=== PATIENT | female | born 1960 | race Caucasian/White ===

== ENCOUNTER 2017-06-18 09:47 | Emergency (ER) | payer MEDICARE, MEDICAID ==
[2017-06-18 10:13] VITALS: BP 138/80
--- NOTE | 2017-06-18 10:34 | UC ---
General HPI - HPI Summary HPI Summary: elevated BP x 2 days hx of HTN , has been getting high readings at home no chest pain , no palpitation , mild headaches, no sob - History of Current Complaint Chief Complaint: UCGeneralIllness Stated Complaint: ELEVATED B/P Time Seen by Provider: 06/18/17 10:16 Hx Obtained From: Patient Onset/Duration: Gradual Onset, Lasting Days - 2, Still Present Timing: Constant Onset Severity: Moderate Current Severity: Moderate Pain Intensity: 0 Associated Signs & Symptoms: Positive: Headache. Negative: Agitation, Abdominal Pain, Cough, Chest Pain, Dizziness, Diarrhea, Dysuria, Diaphoresis, Edema, Fever, Melena, Nausea, Palpitations, SOB, Vomiting, Wheezing, Weakness - Allergy/Home Medications Allergies/Adverse Reactions: Allergies Allergy/AdvReac Type Severity Reaction Status Date / Time hydrocodone Allergy Mild night Verified 06/18/17 10:01 tremors meperidine [From Demerol] Allergy Rash Verified 06/18/17 10:01 prochlorperazine Allergy Rash Verified 06/18/17 10:01 [From Compazine] Sulfa (Sulfonamide Allergy Rash Verified 06/18/17 10:01 Antibiotics) trimethobenzamide Allergy Rash Verified 06/18/17 10:01 [From Tigan] Home Medications: Home Medications Acetaminophen/Diphenhydramine [Tylenol Pm Ex-Strength Caplet] 2 each PO BEDTIME 06/18/17 [History Confirmed 06/18/17] Albuterol HFA INHALER* [Ventolin HFA Inhaler*] 2 puff INH Q6H PRN 06/18/17 [ History Confirmed 06/18/17] Calcitriol CAP* [Rocaltrol CAP*] 0.25 mcg PO BEDTIME 06/18/17 [History Confirmed 06/18/17] Cholecalciferol (Vitamin D3) [Vitamin D3] 1,000 unit PO BID 06/18/17 [History Confirmed 06/18/17] Citalopram TAB* [CeleXA TAB*] 40 mg PO DAILY 06/18/17 [History Confirmed ] Cyclobenzaprine TAB* [Flexeril 10 MG TAB*] 10 mg PO TID PRN 06/18/17 [History Confirmed 06/18/17] Denivir 1 udc TOPICAL SEE INSTRUCTIONS 06/18/17 [History Confirmed 06/18/17] Dexlansoprazole [Dexilant] 60 mg PO DAILY 06/18/17 [History Confirmed 06/18/17] Ferrous Sulfate TAB* 325 mg PO DAILY 06/18/17 [History Confirmed 06/18/17] Fluticasone NASAL SPRAY 50MCG* [Flonase NASAL SPRAY 50MCG*] 2 spray BOTH NARES BID 06/18/17 [History Confirmed 06/18/17] Fluticasone-Salmeterol 250-50* [Advair Diskus 250-50*] 1 puff INH BID 06/18/17 [ History Confirmed 06/18/17] Hydroxychloroquine TAB* [Plaquenil TAB*] 200 mg PO BID 06/18/17 [History Confirmed 06/18/17] Levothyroxine TAB* [Synthroid TAB*] 137 mcg PO DAILY 06/18/17 [History Confirmed 06/18/17] Metoprolol Succinate XL TAB* [Toprol XL TAB*] 50 mg PO DAILY 06/18/17 [History Confirmed 06/18/17] Multivitamin [Once Daily] 1 each PO DAILY 06/18/17 [History Confirmed 06/18/17] Polyethylene Glycol 3350* [Miralax*] 17 gm PO DAILY 06/18/17 [History Confirmed 06/18/17] SUMAtriptan TAB* [Imitrex TAB*] 100 mg PO SEE INSTRUCTIONS 06/18/17 [History Confirmed 06/18/17] Sucralfate SUSP (NF) [Carafate SUSP (NF)] 10 ml PO QID 06/18/17 [History Confirmed 06/18/17] Sucralfate TAB* [Carafate*] 1 gm PO TID 06/18/17 [History Confirmed 06/18/17] Valsartan TAB* [Diovan TAB*] 80 mg PO DAILY 06/18/17 [History Confirmed 06/18/17 ] busPIRone TAB* [Buspar TAB*] 1 tab PO BID 06/18/17 [History Confirmed 06/18/17] traMADol TAB* [Ultram*] 100 mg PO Q4H 06/18/17 [History Confirmed 06/18/17] PMH/Surg Hx/FS Hx/Imm Hx - Additional Past Medical History Additional PMH: GERD KIDNEY DISEASE OSTEO RA PLANTAR FACIITIS Endocrine History: Hypothyroidism Cardiovascular History: Hypertension GI/ History: Gastroesophageal Reflux - Surgical History Surgical History: Yes Surgery Procedure, Year, and Place: T&A. EAR TUBES. TOTAL THYROIDECTOMY. B/L TKA. RIGHT FOOT SX. LEFT ELBOW SX. HIATAL HERNIA REPAIR. RIGHT CARPAL TUNNEL. C-SECT. HYSTERECTOMY - Family History Known Family History: Positive: Cardiac Disease, Hypertension - Social History Alcohol Use: Rare Substance Use Type: None Smoking Status (MU): Never Smoked Tobacco Review of Systems Constitutional: Negative Skin: Negative Eyes: Negative ENT: Negative Respiratory: Negative Is Patient Immunocompromised?: No All Other Systems Reviewed And Are Negative: Yes Physical Exam Triage Information Reviewed: Yes Appearance: Well-Appearing, No Pain Distress, Obese Vital Signs: Initial Vital Signs Temp 97.8 F 06/18/17 10:05 Pulse 91 06/18/17 10:05 Resp 18 06/18/17 10:05 BP 138/80 06/18/17 10:05 Pulse Ox 98 06/18/17 10:05 Vital Signs Reviewed: Yes Eyes: Positive: Conjunctiva Clear ENT: Positive: Normal ENT inspection, Hearing grossly normal, Pharynx normal Neck: Positive: Supple, Nontender, No Lymphadenopathy Respiratory: Positive: Chest non-tender, Lungs clear, Normal breath sounds, No respiratory distress Cardiovascular: Positive: RRR, No Murmur, Pulses Normal Abdominal Exam: Normal Abdomen Description: Positive: Nontender, Soft Bowel Sounds: Positive: Present Musculoskeletal Exam: Normal Musculoskeletal: Positive: No Edema Neurological: Positive: Alert Skin Exam: Normal Course/Dx - Differential Dx - Multi-Symptom Provider Diagnoses: HTN Discharge - Sign-Out/Discharge Documenting (check all that apply): Discharge - Discharge Plan Condition: Stable Disposition: HOME Patient Education Materials: Hypertension (ED) Referrals: Nandini Black MD [Primary Care Provider] - 5 Days Additional Instructions: continue current meds monitor your BP daily and keep a log take your BP readings to your pcp in 5 to 7 days - Billing Disposition and Condition Condition: STABLE Disposition: HOME
== END 2017-06-18 10:42 | disposition home or self-care (01) ==
LOC: UCCORT 09:47
DX: I10 Essential (primary) hypertension (principal); Z88.5 Allergy status to narcotic agent; Z88.2 Allergy status to sulfonamides; Z88.8 Allergy status to other drugs, medicaments and biological substances; E03.9 Hypothyroidism, unspecified; N28.9 Disorder of kidney and ureter, unspecified; K21.9 Gastro-esophageal reflux disease without esophagitis; M72.2 Plantar fascial fibromatosis; M06.9 Rheumatoid arthritis, unspecified
CPT/HCPCS: 99212; G0463

== ENCOUNTER 2018-09-23 16:19 | Emergency (ER) | payer MEDICARE, MEDICAID | END 2018-09-23 16:31 | disposition left against medical advice (07) | LOC: UCCORT 16:19 | DX: R05 Cough (principal); R09.81 Nasal congestion; Z53.21 Procedure and treatment not carried out due to patient leaving prior to being seen by health care provider ==